=== PATIENT | female | born 1970 | race Caucasian/White ===

== ENCOUNTER 2023-10-02 02:10 | Emergency (ER) | payer OTHER ==
[~2023-10-02] VITALS: Ht 162.6 cm; Wt 68.9 kg
[2023-10-02 02:17] VITALS: BP 138/78; PULSE 63; RESP 14; TEMP 97.9; O2SAT 99
[2023-10-02] MEDS ORDERED: BEN50 PO (02:38)
[2023-10-02] MEDS ORDERED: PRED20TA5 PO (02:38)
[2023-10-02] MEDS: diphenhydrAMINE 50 MG CAP PO ONE (02:47)
[2023-10-02] MEDS: DEXAMETHASONE 10 MG/ML VIAL IM ONE (02:48)
[2023-10-02 03:01] VITALS: BP 138/78; PULSE 63; RESP 14; TEMP 97.9; O2SAT 99
== END 2023-10-02 03:01 | disposition home or self-care (01) ==
LOC: MED 02:10
DX: L50.9 Urticaria, unspecified (principal); Z79.899 Other long term (current) drug therapy
CPT/HCPCS: 96372; 99283; J1100; Q0163